=== PATIENT | male | born 1940 | race Caucasian/White ===

== ENCOUNTER → 2023-07-17 00:04 | Outpatient (CLI) | payer MEDICARE, SELFPAY ==
--- NOTE | 2023-07-17 | DI.CT_ITS ---
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 TECHNIQUE: Imaging protocol: Axial computed tomography images were obtained and coronal and sagittal reformatted images were created and reviewed. COMPARISON: CT CT CHEST/ABD/PELVIS W/CONTRAST from 12/27/2022 FINDINGS: Tracheobronchial tree: Patent where visualized. Pulmonary parenchyma: There is a stable 3 mm nodule in the periphery of the left lower lobe (series 3 , image 434). The nodule seen in the periphery of the right upper lobe is stable (series 3, image 19 1). The nodule in the right middle lobe measures 6 mm (series 3, image 324) compared to 5 mm on the prior examination. No focal consolidating infiltrates are present. Mediastinum and Pamela: No dominant adenopathy or fluid collection. The esophagus is unremarkable. Thyroid gland: Unremarkable. Pleura: No effusion or pneumothorax. Heart: The heart is not dilated. Coronary artery calcifications are present. No pericardial effusion . Aorta: Thoracic aorta non-dilated. Atherosclerotic calcification is present. Upper abdomen: Unremarkable. Lymph nodes: Within normal limits. Soft tissues: Bilateral gynecomastia. There is mild fatty atrophy of the muscles noted. Bones:Within normal limits for the patient's age. IMPRESSION: 1. No new pulmonary nodules. 3 pulmonary nodules are identified. The right middle lobe nodule measu res 6 mm compared to 5 mm on the prior examination. Follow-up CT scan of the chest is recommended fo r continued monitoring. 2. No acute pulmonary process. RADIATION DOSE DELIVERED: 419.63mGy.cm Total DLP 419.63mGy.cm Total DLP DATA REPOSITORY: All CT scans at this facility are submitted to the National Radiology Data Registry (NRDR) Dose Index Registry (DIR) with the [employer] ([employer]). RADIATION OPTIMIZATION: All CT scans at this facility use at least one of these dose optimization te chniques: automated exposure control; mA and/or kV adjustment per patient size (includes targeted exa ms where dose is matched to clinical indication); or iterative reconstruction.
== END ==
PROVIDERS: PCP Internal Medicine; Visit Provider Urology
DX: C67.0 Malignant neoplasm of trigone of bladder (principal); R91.8 Other nonspecific abnormal finding of lung field
CPT/HCPCS: 71250